=== PATIENT | male | born 1990 | race Caucasian/White ===

== ENCOUNTER 2017-12-19 20:16 | Emergency (ER) | payer BC ==
[~2017-12-19] VITALS: Ht 170.2 cm; Wt 77.1 kg
--- OUTSIDE RECORDS SUMMARY | ~2017-12-19 | XMS | Clinical Summary ---
Demographics + + + | Address | [address] | | | [place] [address] | + + + | Home Phone | | + + + | Preferred Language | Unknown | + + + | Marital Status | Single | + + + | Baptism Affiliation | 1013 | + + + | Race | Unknown | + + + | Ethnic Group | Unknown | + + + Author + + + | Author | [facility] | | | and [place] | + + + | Organization | [facility] | | | and [place] | + + + | Address | Unknown | + + + | Phone | Unavailable | + + + Support + + +---------+ + | Name | Relationship | Address | Phone | + + +---------+ + | Gale Chris | ECON | Unknown | | + + +---------+ + Care Team Providers + +------+ + | Care Speech Pathologist Name | Role | Phone | + +------+ + | Leonardo Hampton MD | PP | Unavailable | + +------+ + Allergies + + + + + + | Active Allergy | Reactions | Severity | Noted | Comments | | | | | Date | | + + + + + + | Ondansetron | Other (See Comments) | | 10/11/19 | hiccups | | | | | 15 | | + + + + + + | Prednisone | Other (See Comments) | | 07/18/19 | hiccups | | | | | 17 | | + + + + + + Current Medications + + +-------+---------+------+------+-------+ | Prescription | Sig. | Disp. | Refills | Star | End | Statu | | | | | | t | Date | s | | | | | | Date | | | + + +-------+---------+------+------+-------+ | gabapentin | Take by mouth. | | | | | Activ | | (NEURONTIN) 100 mg | Patient taking 200 | | | | | e | | capsule | mg daily and 600 mg | | | | | | | | nightly | | | | | | + + +-------+---------+------+------+-------+ Active Problems + + + | Problem | Noted Date | + + + | Terminal ileitis, without complications (HCC) | 11/28/2014 | + + + + + | Overview: resolved. | + + + + + | Acid reflux | 09/18/2014 | + + + | Gastric catarrh | 09/18/2014 | + + + | Bowel disease, inflammatory | 09/18/2014 | + + + | INGUINAL HERNIA, LEFT | | + + + | Epigastric abdominal pain | | + + + | Abdominal pain | | + + + + + | Overview: CT Abdomen and Pelvis with contrast 09/15/2014 - | | [facility] - Keith Pan III, | | MDImpression:1. Since 08/24/2014 there has been development of | | mural thickening involving the terminal ileum and discontinuous | | segment of the distal ileum. There are new reactive lymph notes | | in the right lower quadrant mesentery. There is no abscess or | | free fluid. These findings are most suggestive of infectious or | | more likely inflammatory process. Recommend clinical | | correlation.2. No other significant interval change since | | 08/24/2014 or other new acute abnormality. | + + Family History + + +------+ + | Medical History | Relation | Name | Comments | + + +------+ + | No Known Problems | Brother | | | + + +------+ + | No Known Problems | Brother | | | + + +------+ + | No Known Problems | Child | | | + + +------+ + | ADD/ADHD | Father | | | + + +------+ + | GERD | Father | | | + + +------+ + | Hypertension | Father | | borderline | + + +------+ + | Low Back Pain | Father | | | + + +------+ + | Other (see comment) | Father | | acne | + + +------+ + | Heart attack | Maternal | | | | | Grandmoth | | | | | er | | | + + +------+ + | Mental illness | Mother | | | + + +------+ + | Crohn's disease | Other | | grandmother | + + +------+ + | Coronary artery | Other | | grandmother | | disease | | | | + + +------+ + | Breast cancer | Paternal | | | | | Grandmoth | | | | | er | | | + + +------+ + | Fibromyalgia | Paternal | | | | | Grandmoth | | | | | er | | | + + +------+ + | No Known Problems | Sister | | | + + +------+ + | No Known Problems | Sister | | | + + +------+ + + +------+--------+ + | Relation | Name | Status | Comments | + +------+--------+ + | Brother | | Alive | | + +------+--------+ + | Brother | | Alive | | + +------+--------+ + | Brother | | | | + +------+--------+ + | Brother | | | | + +------+--------+ + | Child | | Alive | | + +------+--------+ + | Child | | | | + +------+--------+ + | Father | | Alive | | + +------+--------+ + | Maternal Grandfather | | Other | STATUS NOT LISTED | + +------+--------+ + | Maternal Grandmother | | Other | STATUS NOT LISTED | + +------+--------+ + | Mother | | Alive | | + +------+--------+ + | Other | | | | + +------+--------+ + | Other | | | | + +------+--------+ + | Paternal Grandfather | | Other | STATUS NOT LISTED | + +------+--------+ + | Paternal Grandmother | | Other | STATUS NOT LISTED | + +------+--------+ + | Sister | | Alive | | + +------+--------+ + | Sister | | Alive | | + +------+--------+ + | Sister | | | | + +------+--------+ + | Sister | | | | + +------+--------+ + Social History + +-------+ +--------+------+ | Tobacco Use | Types | Packs/Day | Years | Date | | | | | Used | | + +-------+ +--------+------+ | Never Smoker | | | | | + +-------+ +--------+------+ + +---+---+---+ | Smokeless Tobacco: | | | | | Never Used | | | | + +---+---+---+ + + +---------+ + | Alcohol Use | Drinks/We | oz/Week | Comments | | | ek | | | + + +---------+ + | Yes | 1-2 | 0.6 - | rare | | | Cans of | 1.2 | | | | beer | | | + + +---------+ + + + + | Sex Assigned at | Date Recorded | | | | + + + | Not on file | | + + + Last Filed Vital Signs + + + + | Vital Sign | Reading | Time Taken | + + + + | Blood Pressure | 120/77 | 11/17/20164 PDT | + + + + | Pulse | 69 | 11/17/20161243 PDT | + + + + | Temperature | 36.7 C (98.1 F) | 11/27/20141026 PDT | + + + + | Respiratory Rate | 16 | 11/27/20147 PDT | + + + + | Oxygen Saturation | 97% | 11/27/2014 1027 PDT | + + + + | Inhaled Oxygen | - | - | | Concentration | | | + + + + | Weight | 79.4 kg (175 lb) | 11/17/20161243 PDT | + + + + | Height | 170.2 cm (5' 7") | 11/17/20161243 PDT | + + + + | Body Mass Index | 27.41 | 11/17/20161243 PDT | + + + + Plan of Treatment + + + + + | Health Maintenance | Due Date | Last Done | Comments | + + + + + | Vaccine: | | | | | Dtap/Tdap/Td (1 - | 8 | | | | Tdap) | | | | + + + + + | Vaccine: Influenza | | | | | (#1) | 8 | | | + + + + + Results Not on filefrom Last 3 Months Insurance +---------+--------+ +------+ +---------+ | Payer | Benefi | Subscriber | Type | Phone | Address | | | t Plan | ID | | | | | | / | | | | | | | Group | | | | | +---------+--------+ +------+ +---------+ | [place] [id number] | [place] | [phone]- | | | | [place] | 2 | | [phone] | | +---------+--------+ +------+ +---------+ + +--------+ +--------+ + + | Guarantor Name | Accoun | Relation to | Date | Phone | Billing Address | | | t Type | Patient | of | | | | | | | | | | + +--------+ +--------+ + + | FAHEEM MOY | Person | Self [birth year] | Home: | [address] | | [place] | al/Fam | | 1990 | [phone] | [place] | | | [place] | | | [phone] | [phone] | + +--------+ +--------+ + +
--- OUTSIDE RECORDS SUMMARY | ~2017-12-19 | XMS | Clinical Summary ---
Demographics + + + | Address | [address] | | | [place] [address] | + + + | Home Phone | | + + + | Preferred Language | Unknown | + + + | Marital Status | Single | + + + | Gnosticism Affiliation | 1013 | + + + | Race | Unknown | + + + | Ethnic Group | Unknown | + + + Author + + + | Author | [facility] | | | and [place] | + + + | Organization | [facility] | | | and [...] Team Providers + +------+ + | Care Palliative Senior Np Name | Role | Phone | + [...] Pelvis with contrast 09/15/2014 - | | [facility] - Keith Pan III, | | MDImpression:1. [...] +---------+ | [place] | [id number] | PPO | [phone]- | | | [...] | | | [place] | | | [phone] | [phone] | + +--------+ +--------+ + +
[~2017-12-19 20:16] MED LIST: AZITHROMYCIN250 MG PO; BENTYL20 MG PO; DEXAMETHASONE4 MG PO; NAPROSYN500 MG PO; NORCO 5-325 TA1 EACH PO; NYQUIL D COLD295 ML PO; PEPCID20 MG PO; PREDNISONE20 MG PO; PROAIR HFA8.5 GM INH; REGLAN10 MG PO; ROBITUSSIN COU118 M4 PO; TUSSICAPS PO; TYLENOL325 MG PO; ULTRAM50 MG PO
[2017-12-19] MEDS ORDERED: TRAMADOL HCL50 MG PO (21:46)
--- NOTE | 2017-12-20 07:48 | EKG ---
[facility] [address] [facility] [address] [place] [address] Signed Normal sinus rhythm Normal ECG No previous ECGs available Confirmed by SUDHAKAR MORSE MD ([id number]) on 12/20/2017 7:47:30 AM Electronically Signed By: SUDHAKAR MORSE MD 12/20/17 0748 PATIENT NAME: DALLAS MOY Electrocardiogram DATE OF : 86 PHYSICIAN: SUDHAKAR MORSE MD REPORT #: [id number] REPORT IS CONFIDENTIAL AND NOT TO BE RELEASED WITHOUT AUTHORIZATION
== END 2017-12-19 21:55 | disposition home or self-care (01) ==
LOC: ED 20:16
DX: R07.89 Other chest pain (principal); Z88.8 Allergy status to other drugs, medicaments and biological substances
CPT/HCPCS: 71046; 80053; 84484; 85025; 85379; 93005; 93010; 99285

== ENCOUNTER 2018-05-26 19:27 | Emergency (ER) | payer BC ==
[~2018-05-26] VITALS: Ht 170.2 cm; Wt 81.7 kg
[~2018-05-26 19:27] MED LIST changes: +TRAMADOL HCL50 MG PO
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
[2018-05-26] MEDS ORDERED: ACETAMINOPHEN-1 EAC1 PO (19:50)
== END 2018-05-26 20:05 | disposition home or self-care (01) ==
LOC: ED 19:27
PROC: 2W0 Placement, Anatomical Regions, Change (ICD-10-PCS; principal; 2018-05-26)
DX: T23.251A Burn of second degree of right palm, initial encounter (principal); Z88.8 Allergy status to other drugs, medicaments and biological substances; X10.2XXA Contact with fats and cooking oils, initial encounter
CPT/HCPCS: 16020; 99283-25

== ENCOUNTER 2020-01-16 09:04 | Emergency (ER) | payer BC ==
[~2020-01-16] VITALS: Ht 170.2 cm; Wt 81.7 kg
[~2020-01-16 09:04] MED LIST changes: +ACETAMINOPHEN-1 EAC1 PO
[2020-01-16] MEDS ORDERED: GABAPENTIN300 MG PO (09:23)
[2020-01-16] MEDS ORDERED: PREDNISONE20 MG PO (14:20)
[2020-01-16] MEDS ORDERED: ULTRAM50 MG PO (14:20)
[2020-01-17] MEDS ORDERED: PANTOPRAZOLE SO40 MG PO (19:04)
[2020-01-17] MEDS ORDERED: PROMETHAZINE HC25 M1 PO (19:04)
[2020-01-17] MEDS ORDERED: REGLAN10 MG PO (19:37)
== END 2020-01-16 14:34 | disposition home or self-care (01) ==
LOC: ED 09:04
DX: K50.90 Crohn's disease, unspecified, without complications (principal); Z88.8 Allergy status to other drugs, medicaments and biological substances; Z79.899 Other long term (current) drug therapy
CPT/HCPCS: 74177; 80053; 81001; 83690; 85025; 96361; 99284-25; J1170; J2550; J2930; J7030; Q9967

== ENCOUNTER 2020-01-17 16:46 | Emergency (ER) | payer BC ==
[~2020-01-17] VITALS: Ht 170.2 cm; Wt 81.7 kg
[~2020-01-17 16:46] MED LIST changes: +GABAPENTIN300 MG PO
--- OUTSIDE RECORDS SUMMARY | 2020-01-17 16:50 | XMS ---
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 Care History Medical/Surgical 12/20/2017 [facility] - Patient is currently established with [facility]. If patient is seen in the ED during business hours. Please contact CHWs at [facility]. Care Recommendation: This patient has [...] care. E.D. VISIT COUNT (12 MO[address] 2 [facility] TOTAL 2 NOTE: Visits indicate total known visits. ED/UCC VISIT TRACKING (12 MO.) 01/17/2020 16:47 [facility] [place] TYPE: Emergency COMPLAINT: - VOMITING BLOOD 01/16/2020 09:04 [facility] [place] TYPE: Emergency COMPLAINT: - R SIDE ABDOMINAL PAIN INPATIENT VISIT TRACKING (12 MO.) No inpatient visits to display in this time frame [id number]
[2020-01-17] MEDS ORDERED: PANTOPRAZOLE SO40 MG PO (19:04)
[2020-01-17] MEDS ORDERED: PROMETHAZINE HC25 M1 PO (19:04)
[2020-01-17] MEDS ORDERED: REGLAN10 MG PO (19:37)
== END 2020-01-17 19:40 | disposition home or self-care (01) ==
LOC: ED 16:46
DX: K29.71 Gastritis, unspecified, with bleeding (principal); K50.90 Crohn's disease, unspecified, without complications; Z88.8 Allergy status to other drugs, medicaments and biological substances; Z79.899 Other long term (current) drug therapy
CPT/HCPCS: 80053; 85025; 96374; 96375; 99284-25; C9113; J1170; J2550; J2920; J7030